=== PATIENT | female | born 1955 | race Caucasian/White ===

== ENCOUNTER 2023-08-29 13:51 | Outpatient (CLI) | payer MEDICARE, SELFPAY ==
[2023-08-29 13:44] LABS: Abs Immature Grans 0.02 10^3/uL (0.0-0.06); Absolute Basophil Count 0.02 10^3/uL (0.0-0.2); Absolute Eosinophil Count 0.14 10^3/uL (0.0-0.7); Absolute Lymphocyte Count 0.58 10^3/uL (1.2-3.4); Absolute Monocyte Count 0.53 10^3/uL (0.1-0.8); Absolute Neutrophil Count 5.74 10^3/uL (1.2-6.7); Basophils % 0.3 %; HCT 42.9 % (36.0-46.0); HGB 13.9 g/dL (11.2-15.7); Immature Grans % 0.3 %; Lymphocytes % 8.3 %; MCH 28.5 pg (27.0-33.0); MCHC 32.4 % (32.0-36.0); MCV 88 fL (80-95); MPV 10.6 fL (8.0-11.0); Monocytes % 7.5 %; Neutrophils % 81.6 %; Platelet Count 225 10^3/uL (130-400); RBC 4.88 10^6/uL (3.93-5.22); RDW 14.7 % (11.7-14.6); RDW-SD 47.5 fL; WBC 7.03 10^3/uL (4.4-10.8)
[2023-08-29 14:03] LABS: ALT 23 U/L (14-59); AST 16 U/L (15-37); Albumin 4.2 g/dL (3.4-5.0); Alkaline Phosphatase 124 U/L (46-116); Anion Gap 8.9 mmol/L (3-11); BUN 11 mg/dL (7-18); Bilirubin, Total 0.5 mg/dL (0.2-1.0); CO2 27.1 mmol/L (21.0-32.0); CREATININE 1.1 mg/dL (0.55-1.02); Calcium 9.5 mg/dL (8.5-10.1); Chloride 101 mmol/L (98-107); Estimated GFR 54.73 (mL/min/1.73m2); Glucose 99 mg/dL (74-106); Potassium 4.2 mmol/L (3.5-5.1); Sodium 137 mmol/L (136-145); Total Protein 7.4 g/dL (6.4-8.2)
[2023-08-29 14:14] LABS: LDH 206 U/L (81-234)
[2023-08-30 09:21] LABS: Hepatitis B Surface Ag Negative (Negative)
[2023-08-30 09:32] LABS: HBs Antibody, Quant <3.1 mIU/mL (See Note); Hepatitis B Surface Ab Negative (See Note)
[2023-08-30 09:52] LABS: Hepatitis C Ab w Rflx HCV PCR Negative (Negative)
[2023-08-30 10:20] LABS: HIV-1/2 Ag & Ab Screen Negative (Negative); IgA 49 mg/dL (85-499); IgG 461 mg/dL (610-1616); IgM 40 mg/dL (35-242); Kappa Free Light Chain 1.11 mg/dL (0.33-1.94); Lambda Free Light Chain 0.98 mg/dL (0.57-2.63)
[2023-08-30 10:41] LABS: Hep B Core Antibody Negative (Negative)
[2023-08-30 20:00] LABS: Beta-2-Microglobulin 3.93 mcg/mL
== END 2023-08-29 13:52 | disposition home or self-care (01) ==
LOC: LBO 13:52
PROVIDERS: Visit Provider Internal Medicine Hematology & Oncology
DX: C82.18 Follicular lymphoma grade II, lymph nodes of multiple sites (principal)
CPT/HCPCS: 36415; 80053; 82784; 86704; 86706; 86803; 87340; 87389; 82232; 83615; 83883; 84550; 85025

== ENCOUNTER 2023-08-31 15:29 | Outpatient (REF) | payer MEDICARE, SELFPAY ==
[2023-09-03 14:52] LABS: Albumin, Urine % 17.3 %; Albumin, Urine mg/24hrs 42 mg/24hrs; Globulins, Urine % 82.7 %; Globulins, Urine mg/24hrs 200 mg/24hrs; Immunotyping, Urine (See Note); Total Protein Urine 11 mg/dL (See Note); Total Protein, Urine 24hrs 242 mg/24hrs (<150); Urine Volume 2200 mL
== END 2023-08-31 15:30 | disposition home or self-care (01) ==
LOC: LBN 15:29
PROVIDERS: Visit Provider Internal Medicine Hematology & Oncology
DX: C82.18 Follicular lymphoma grade II, lymph nodes of multiple sites (principal)
CPT/HCPCS: 84156; 84166; 86335; 81050

== ENCOUNTER 2023-10-17 01:41 | Outpatient (RCR) | payer MEDICARE, SELFPAY ==
[2023-10-17] MEDS: Normal Saline Flush 10 ML SYR IVP (09:27)
[2023-10-17 09:38] LABS: Abs Immature Grans 0.02 10^3/uL (0.0-0.06); Absolute Basophil Count 0.03 10^3/uL (0.0-0.2); Absolute Eosinophil Count 0.05 10^3/uL (0.0-0.7); Absolute Lymphocyte Count 0.55 10^3/uL (1.2-3.4); Absolute Monocyte Count 0.54 10^3/uL (0.1-0.8); Absolute Neutrophil Count 4.48 10^3/uL (1.2-6.7); Basophils % 0.5 %; Eosinophils % 0.9 %; HCT 39.1 % (36.0-46.0); HGB 13.2 g/dL (11.2-15.7); Immature Grans % 0.4 %; Lymphocytes % 9.7 %; MCH 28.8 pg (27.0-33.0); MCHC 33.8 % (32.0-36.0); MCV 85 fL (80-95); MPV 10.3 fL (8.0-11.0); Monocytes % 9.5 %; Platelet Count 214 10^3/uL (130-400); RBC 4.59 10^6/uL (3.93-5.22); RDW 14.6 % (11.7-14.6); RDW-SD 44.9 fL; WBC 5.67 10^3/uL (4.4-10.8)
[2023-10-17 10:01] LABS: ALT 26 U/L (14-59); AST 17 U/L (15-37); Albumin 3.9 g/dL (3.4-5.0); Alkaline Phosphatase 125 U/L (46-116); Anion Gap 8.3 mmol/L (3-11); BUN 10 mg/dL (7-18); CO2 27.7 mmol/L (21.0-32.0); Calcium 8.8 mg/dL (8.5-10.1); Chloride 101 mmol/L (98-107); Estimated GFR 61.36 (mL/min/1.73m2); Glucose 105 mg/dL (74-106); LDH 188 U/L (81-234); Potassium 4.3 mmol/L (3.5-5.1); Sodium 137 mmol/L (136-145); Total Protein 6.8 g/dL (6.4-8.2)
== END 2023-10-17 23:59 | disposition home or self-care (01) ==
LOC: INF 01:41
PROVIDERS: Nurse Practitioner Adult Health; PCP Family Medicine; Visit Provider Internal Medicine Hematology & Oncology
DX: C82.18 Follicular lymphoma grade II, lymph nodes of multiple sites (principal); Z45.2 Encounter for adjustment and management of vascular access device
CPT/HCPCS: 36591; 80053; 83615; 85025

== ENCOUNTER 2023-11-14 02:38 | Outpatient (RCR) | payer MEDICARE, SELFPAY ==
[2023-10-24] MEDS: Normal Saline Flush 10 ML SYR IVP (08:45)
[2023-10-24 09:13] LABS: Abs Immature Grans 0.04 10^3/uL (0.0-0.06); Absolute Basophil Count 0.02 10^3/uL (0.0-0.2); Absolute Eosinophil Count 0.09 10^3/uL (0.0-0.7); Absolute Lymphocyte Count 0.16 10^3/uL (1.2-3.4); Absolute Monocyte Count 0.59 10^3/uL (0.1-0.8); Absolute Neutrophil Count 5.34 10^3/uL (1.2-6.7); Basophils % 0.3 %; Eosinophils % 1.4 %; HGB 13.6 g/dL (11.2-15.7); Immature Grans % 0.6 %; Lymphocytes % 2.6 %; MCH 28.7 pg (27.0-33.0); MCV 84 fL (80-95); MPV 10.5 fL (8.0-11.0); Monocytes % 9.5 %; Neutrophils % 85.6 %; Platelet Count 249 10^3/uL (130-400); RBC 4.74 10^6/uL (3.93-5.22); RDW 14.6 % (11.7-14.6); RDW-SD 44.4 fL; WBC 6.24 10^3/uL (4.4-10.8)
[2023-10-24 10:00] LABS: ALT 26 U/L (14-59); AST 14 U/L (15-37); Albumin 3.9 g/dL (3.4-5.0); Alkaline Phosphatase 111 U/L (46-116); Anion Gap 11.2 mmol/L (3-11); BUN 12 mg/dL (7-18); Bilirubin, Total 0.87 mg/dL (0.2-1.0); CO2 26.8 mmol/L (21.0-32.0); Calcium 9.1 mg/dL (8.5-10.1); Chloride 98 mmol/L (98-107); Estimated GFR 61.36 (mL/min/1.73m2); Glucose 105 mg/dL (74-106); LDH 194 U/L (81-234); Potassium 3.8 mmol/L (3.5-5.1); Sodium 136 mmol/L (136-145); Total Protein 6.6 g/dL (6.4-8.2)
[2023-11-14] MEDS: Normal Saline Flush 10 ML SYR IVP (08:17)
[2023-11-14 08:30] LABS: Abs Immature Grans 0.02 10^3/uL (0.0-0.06); Absolute Basophil Count 0.05 10^3/uL (0.0-0.2); Absolute Eosinophil Count 0.19 10^3/uL (0.0-0.7); Absolute Lymphocyte Count 0.38 10^3/uL (1.2-3.4); Absolute Monocyte Count 0.55 10^3/uL (0.1-0.8); Absolute Neutrophil Count 2.94 10^3/uL (1.2-6.7); Basophils % 1.2 %; Eosinophils % 4.6 %; Immature Grans % 0.5 %; Lymphocytes % 9.2 %; MCH 29.5 pg (27.0-33.0); MCHC 33.3 % (32.0-36.0); MCV 89 fL (80-95); MPV 10.2 fL (8.0-11.0); Monocytes % 13.3 %; Neutrophils % 71.2 %; Platelet Count 173 10^3/uL (130-400); RBC 4.07 10^6/uL (3.93-5.22); RDW 17.5 % (11.7-14.6); RDW-SD 55.8 fL; WBC 4.13 10^3/uL (4.4-10.8)
[2023-11-14 08:51] LABS: ALT 22 U/L (14-59); AST 14 U/L (15-37); Albumin 3.8 g/dL (3.4-5.0); Alkaline Phosphatase 163 U/L (46-116); Anion Gap 9.2 mmol/L (3-11); BUN 13 mg/dL (7-18); Bilirubin, Total 0.63 mg/dL (0.2-1.0); CO2 25.8 mmol/L (21.0-32.0); Calcium 8.9 mg/dL (8.5-10.1); Chloride 103 mmol/L (98-107); Estimated GFR 61.36 (mL/min/1.73m2); Glucose 91 mg/dL (74-106); LDH 211 U/L (81-234); Potassium 4.1 mmol/L (3.5-5.1); Sodium 138 mmol/L (136-145); Total Protein 6.5 g/dL (6.4-8.2)
== END 2023-11-17 23:59 | disposition home or self-care (01) ==
LOC: INF 02:38
PROVIDERS: Nurse Practitioner Adult Health; PCP Family Medicine; Visit Provider Internal Medicine Hematology & Oncology
DX: C82.18 Follicular lymphoma grade II, lymph nodes of multiple sites (principal)
CPT/HCPCS: 36591; 80053; 83615; 85025

== ENCOUNTER 2023-12-12 02:16 | Outpatient (RCR) | payer MEDICARE, SELFPAY ==
[2023-12-12] MEDS: Normal Saline Flush 10 ML SYR IVP (08:40)
[2023-12-12 09:02] LABS: Abs Immature Grans 0.02 10^3/uL (0.0-0.06); Absolute Basophil Count 0.03 10^3/uL (0.0-0.2); Absolute Eosinophil Count 0.14 10^3/uL (0.0-0.7); Absolute Monocyte Count 0.45 10^3/uL (0.1-0.8); Absolute Neutrophil Count 3.38 10^3/uL (1.2-6.7); Basophils % 0.7 %; Eosinophils % 3.3 %; HCT 37.3 % (36.0-46.0); HGB 12.7 g/dL (11.2-15.7); Immature Grans % 0.5 %; Lymphocytes % 4.7 %; MCH 31.3 pg (27.0-33.0); MCV 92 fL (80-95); MPV 10.3 fL (8.0-11.0); Monocytes % 10.7 %; Neutrophils % 80.1 %; Platelet Count 156 10^3/uL (130-400); RBC 4.06 10^6/uL (3.93-5.22); RDW 17.2 % (11.7-14.6); RDW-SD 58.2 fL; WBC 4.22 10^3/uL (4.4-10.8)
[2023-12-12 09:13] LABS: ALT 30 U/L (14-59); AST 21 U/L (15-37); Albumin 3.7 g/dL (3.4-5.0); Alkaline Phosphatase 162 U/L (46-116); Anion Gap 7.4 mmol/L (3-11); BUN 12 mg/dL (7-18); Bilirubin, Total 0.56 mg/dL (0.2-1.0); CO2 26.6 mmol/L (21.0-32.0); Calcium 8.9 mg/dL (8.5-10.1); Chloride 104 mmol/L (98-107); Estimated GFR 61.36 (mL/min/1.73m2); Glucose 96 mg/dL (74-106); LDH 188 U/L (81-234); Sodium 138 mmol/L (136-145); Total Protein 6.5 g/dL (6.4-8.2)
== END 2023-12-17 23:59 | disposition home or self-care (01) ==
LOC: INF 02:16
PROVIDERS: Nurse Practitioner Adult Health; PCP Family Medicine; Visit Provider Internal Medicine Hematology & Oncology
DX: C82.18 Follicular lymphoma grade II, lymph nodes of multiple sites (principal); Z45.2 Encounter for adjustment and management of vascular access device
CPT/HCPCS: 36591; 80053; 96523; 83615; 85025

== ENCOUNTER 2023-12-12 09:25 | Outpatient (CLI) | payer MEDICARE, SELFPAY ==
--- NOTE | 2023-12-12 09:37 | DI.RAD_ITS ---
Exam(s) XR CHEST 2V PA LATERAL EXAM: XR CHEST 2V PA LATERAL CLINICAL HISTORY: COUGH R05.3 LYMPHOMA C82.18 ASSESS FOR PNA, ON CHEMO TECHNIQUE: 2D digital imaging was performed of the chest. Two images were obtained. PA and lateral views were obtained. COMPARISON: No exams were available for comparison FINDINGS: MEDIASTINUM: Normal. HEART: Normal. PULMONARY VASCULATURE: Normal. LUNGS: On the lateral view, there is an opacity projected posteriorly and superiorly. It overlies th e upper thoracic spine. The lungs are otherwise clear. PLEURAL SPACE: No pleural effusion or pneumothorax. BONE:Within normal limits for the patient's age. OTHER FINDINGS:The tip of the indwelling central venous catheter is in good position at the junction of the superior vena cava and right atrium. IMPRESSION: Question of an opacity seen on the lateral view in the posterior and superior chest. Infiltrate, pul monary nodule versus versus osseous lesion. CT scan of the chest should be considered for further ev aluation. DATA REPOSITORY: RADIATION DOSE DELIVERED:
== END 2023-12-12 09:45 ==
LOC: DI 09:26
PROVIDERS: PCP Family Medicine; Visit Provider Internal Medicine Hematology & Oncology
DX: C82.18 Follicular lymphoma grade II, lymph nodes of multiple sites (principal); R05.3 Chronic cough
CPT/HCPCS: 71046

== ENCOUNTER 2024-01-09 03:14 | Outpatient (RCR) | payer MEDICARE, SELFPAY ==
[2024-01-09] MEDS: Normal Saline Flush 10 ML SYR IVP (08:14)
[2024-01-09 08:38] LABS: Abs Immature Grans 0.03 10^3/uL (0.0-0.06); Absolute Basophil Count 0.01 10^3/uL (0.0-0.2); Absolute Eosinophil Count 0.19 10^3/uL (0.0-0.7); Absolute Lymphocyte Count 0.15 10^3/uL (1.2-3.4); Absolute Monocyte Count 0.62 10^3/uL (0.1-0.8); Absolute Neutrophil Count 5.53 10^3/uL (1.2-6.7); Basophils % 0.2 %; Eosinophils % 2.9 %; HCT 36.8 % (36.0-46.0); HGB 12.8 g/dL (11.2-15.7); Immature Grans % 0.5 %; Lymphocytes % 2.3 %; MCH 31.8 pg (27.0-33.0); MCHC 34.8 % (32.0-36.0); MCV 91 fL (80-95); MPV 10.5 fL (8.0-11.0); Monocytes % 9.5 %; Neutrophils % 84.6 %; Platelet Count 177 10^3/uL (130-400); RBC 4.03 10^6/uL (3.93-5.22); RDW 14.4 % (11.7-14.6); RDW-SD 48.8 fL; WBC 6.53 10^3/uL (4.4-10.8)
[2024-01-09 08:53] LABS: ALT 29 U/L (14-59); AST 17 U/L (15-37); Albumin 3.6 g/dL (3.4-5.0); Alkaline Phosphatase 167 U/L (46-116); Anion Gap 7.6 mmol/L (3-11); BUN 10 mg/dL (7-18); Bilirubin, Total 0.57 mg/dL (0.2-1.0); CO2 27.4 mmol/L (21.0-32.0); Calcium 9.1 mg/dL (8.5-10.1); Chloride 103 mmol/L (98-107); Estimated GFR 61.36 (mL/min/1.73m2); Glucose 97 mg/dL (74-106); LDH 185 U/L (81-234); Potassium 4.2 mmol/L (3.5-5.1); Sodium 138 mmol/L (136-145); Total Protein 6.7 g/dL (6.4-8.2)
== END 2024-01-17 23:59 | disposition home or self-care (01) ==
LOC: INF 03:14
PROVIDERS: Nurse Practitioner Adult Health; PCP Family Medicine; Visit Provider Internal Medicine Hematology & Oncology
DX: C82.18 Follicular lymphoma grade II, lymph nodes of multiple sites (principal); Z45.2 Encounter for adjustment and management of vascular access device
CPT/HCPCS: 36591; 80053; 83615; 85025

== ENCOUNTER 2024-02-06 02:10 | Outpatient (RCR) | payer MEDICARE, SELFPAY ==
[2024-02-06] MEDS: Normal Saline Flush 10 ML SYR IVP (08:30)
[2024-02-06 09:10] LABS: Abs Immature Grans 0.05 10^3/uL (0.0-0.06); Absolute Basophil Count 0.02 10^3/uL (0.0-0.2); Absolute Eosinophil Count 0.19 10^3/uL (0.0-0.7); Absolute Lymphocyte Count 0.22 10^3/uL (1.2-3.4); Absolute Monocyte Count 0.81 10^3/uL (0.1-0.8); Absolute Neutrophil Count 7.79 10^3/uL (1.2-6.7); Basophils % 0.2 %; Eosinophils % 2.1 %; HGB 11.7 g/dL (11.2-15.7); Immature Grans % 0.6 %; Lymphocytes % 2.4 %; MCHC 34.4 % (32.0-36.0); MCV 90 fL (80-95); MPV 10.3 fL (8.0-11.0); Monocytes % 8.9 %; Neutrophils % 85.8 %; Platelet Count 168 10^3/uL (130-400); RBC 3.78 10^6/uL (3.93-5.22); RDW 13.7 % (11.7-14.6); RDW-SD 45.1 fL; WBC 9.08 10^3/uL (4.4-10.8)
[2024-02-06 09:27] LABS: ALT 38 U/L (14-59); AST 29 U/L (15-37); Albumin 3.3 g/dL (3.4-5.0); Alkaline Phosphatase 173 U/L (46-116); BUN 10 mg/dL (7-18); Bilirubin, Total 0.54 mg/dL (0.2-1.0); CREATININE 0.9 mg/dL (0.55-1.02); Calcium 8.8 mg/dL (8.5-10.1); Chloride 104 mmol/L (98-107); Estimated GFR 69.64 (mL/min/1.73m2); Glucose 103 mg/dL (74-106); LDH 195 U/L (81-234); Sodium 137 mmol/L (136-145); Total Protein 6.5 g/dL (6.4-8.2)
== END 2024-02-16 23:59 | disposition home or self-care (01) ==
LOC: INF 02:10
PROVIDERS: Nurse Practitioner Adult Health; PCP Family Medicine; Visit Provider Internal Medicine Hematology & Oncology
DX: C82.18 Follicular lymphoma grade II, lymph nodes of multiple sites (principal); Z45.2 Encounter for adjustment and management of vascular access device
CPT/HCPCS: 36591; 80053; 83615; 85025

== ENCOUNTER 2024-03-17 02:09 | Outpatient (RCR) | payer MEDICARE, SELFPAY ==
[2024-03-05] MEDS: Normal Saline Flush 10 ML SYR IVP (14:42)
[2024-03-05 14:45] LABS: Abs Immature Grans 0.02 10^3/uL (0.0-0.06); Absolute Basophil Count 0.02 10^3/uL (0.0-0.2); Absolute Eosinophil Count 0.12 10^3/uL (0.0-0.7); Absolute Lymphocyte Count 0.13 10^3/uL (1.2-3.4); Absolute Monocyte Count 0.54 10^3/uL (0.1-0.8); Absolute Neutrophil Count 5.37 10^3/uL (1.2-6.7); Basophils % 0.3 %; Eosinophils % 1.9 %; HCT 36.7 % (36.0-46.0); HGB 12.3 g/dL (11.2-15.7); Immature Grans % 0.3 %; Lymphocytes % 2.1 %; MCH 30.9 pg (27.0-33.0); MCHC 33.5 % (32.0-36.0); MCV 92 fL (80-95); Monocytes % 8.7 %; Neutrophils % 86.7 %; Platelet Count 152 10^3/uL (130-400); RBC 3.98 10^6/uL (3.93-5.22); RDW 14.4 % (11.7-14.6); RDW-SD 48.4 fL
[2024-03-05 15:02] LABS: ALT 28 U/L (14-59); AST 17 U/L (15-37); Albumin 3.5 g/dL (3.4-5.0); Alkaline Phosphatase 143 U/L (46-116); Anion Gap 8.9 mmol/L (3-11); BUN 10 mg/dL (7-18); Bilirubin, Total 0.53 mg/dL (0.2-1.0); CO2 27.1 mmol/L (21.0-32.0); CREATININE 1.1 mg/dL (0.55-1.02); Calcium 8.7 mg/dL (8.5-10.1); Chloride 102 mmol/L (98-107); Estimated GFR 54.73 (mL/min/1.73m2); Glucose 95 mg/dL (74-106); LDH 210 U/L (81-234); Potassium 4.1 mmol/L (3.5-5.1); Sodium 138 mmol/L (136-145); Total Protein 6.5 g/dL (6.4-8.2)
== END 2024-03-18 23:59 | disposition home or self-care (01) ==
LOC: INF 02:09
PROVIDERS: Nurse Practitioner Adult Health; PCP Family Medicine; Visit Provider Internal Medicine Hematology & Oncology
DX: C82.18 Follicular lymphoma grade II, lymph nodes of multiple sites (principal); Z45.2 Encounter for adjustment and management of vascular access device
CPT/HCPCS: 36591; 80053; 83615; 85025

== ENCOUNTER 2024-04-02 02:43 | Outpatient (RCR) | payer MEDICARE, SELFPAY ==
[2024-04-02] MEDS: Normal Saline Flush 10 ML SYR IVP (09:39)
[2024-04-02 09:50] LABS: Abs Immature Grans 0.09 10^3/uL (0.0-0.06); Absolute Eosinophil Count 0.16 10^3/uL (0.0-0.7); Absolute Lymphocyte Count 0.22 10^3/uL (1.2-3.4); Absolute Monocyte Count 1.19 10^3/uL (0.1-0.8); Absolute Neutrophil Count 12.99 10^3/uL (1.2-6.7); Basophils % 0.3 %; Eosinophils % 1.1 %; HCT 35.5 % (36.0-46.0); HGB 11.9 g/dL (11.2-15.7); Immature Grans % 0.6 %; Lymphocytes % 1.5 %; MCH 30.8 pg (27.0-33.0); MCHC 33.5 % (32.0-36.0); MCV 92 fL (80-95); MPV 9.5 fL (8.0-11.0); Monocytes % 8.1 %; Neutrophils % 88.4 %; Platelet Count 236 10^3/uL (130-400); RBC 3.86 10^6/uL (3.93-5.22); RDW 15.4 % (11.7-14.6); RDW-SD 52.1 fL
[2024-04-02 09:51] LABS: Absolute Basophil Count 0.04 10^3/uL (0.0-0.2)
[2024-04-02 10:10] LABS: ALT 30 U/L (14-59); AST 29 U/L (15-37); Albumin 3.5 g/dL (3.4-5.0); Alkaline Phosphatase 196 U/L (46-116); Anion Gap 6.9 mmol/L (3-11); BUN 10 mg/dL (7-18); Bilirubin, Total 0.77 mg/dL (0.2-1.0); CO2 28.1 mmol/L (21.0-32.0); CREATININE 1.1 mg/dL (0.55-1.02); Chloride 101 mmol/L (98-107); Estimated GFR 54.73 (mL/min/1.73m2); Glucose 110 mg/dL (74-106); LDH 213 U/L (81-234); Potassium 4.1 mmol/L (3.5-5.1); Sodium 136 mmol/L (136-145)
== END 2024-04-18 23:59 | disposition home or self-care (01) ==
LOC: INF 02:43
PROVIDERS: Nurse Practitioner Adult Health; PCP Family Medicine; Visit Provider Internal Medicine Hematology & Oncology
DX: C82.18 Follicular lymphoma grade II, lymph nodes of multiple sites (principal)
CPT/HCPCS: 36591; 80053; 82784; 83615; 85025

== ENCOUNTER 2024-04-02 13:49 | Outpatient (REF) | payer MEDICARE, SELFPAY ==
[2024-04-08 15:38] LABS: IgG 336 mg/dL (610-1616)
== END 2024-04-02 13:50 | disposition home or self-care (01) ==
LOC: LBN 13:49
PROVIDERS: PCP Family Medicine; Visit Provider Nurse Practitioner Adult Health
DX: B99.9 Unspecified infectious disease (principal)
CPT/HCPCS: 82784

== ENCOUNTER 2024-07-16 08:35 | Outpatient (RCR) | payer MEDICARE, SELFPAY ==
[2024-06-20 10:40] LABS: Abs Immature Grans 0.01 10^3/uL (0.0-0.06); Absolute Basophil Count 0.03 10^3/uL (0.0-0.2); Absolute Eosinophil Count 0.19 10^3/uL (0.0-0.7); Absolute Lymphocyte Count 0.26 10^3/uL (1.2-3.4); Absolute Neutrophil Count 4.51 10^3/uL (1.2-6.7); Basophils % 0.5 %; Eosinophils % 3.5 %; HCT 36.9 % (36.0-46.0); HGB 12.5 g/dL (11.2-15.7); Immature Grans % 0.2 %; Lymphocytes % 4.7 %; MCHC 33.9 % (32.0-36.0); MCV 92 fL (80-95); MPV 10.3 fL (8.0-11.0); Monocytes % 9.1 %; Platelet Count 176 10^3/uL (130-400); RBC 4.03 10^6/uL (3.93-5.22); RDW 14.1 % (11.7-14.6); RDW-SD 47.8 fL
[2024-06-20 10:54] LABS: ALT 27 U/L (14-59); AST 17 U/L (15-37); Albumin 3.8 g/dL (3.4-5.0); Alkaline Phosphatase 147 U/L (46-116); Anion Gap 7.6 mmol/L (3-11); BUN 11 mg/dL (7-18); Bilirubin, Total 0.5 mg/dL (0.2-1.0); CO2 28.4 mmol/L (21.0-32.0); CREATININE 1.1 mg/dL (0.55-1.02); Calcium 9.5 mg/dL (8.5-10.1); Chloride 103 mmol/L (98-107); Estimated GFR 54.73 (mL/min/1.73m2); Glucose 105 mg/dL (74-106); LDH 188 U/L (81-234); Potassium 4.2 mmol/L (3.5-5.1); Sodium 139 mmol/L (136-145); Total Protein 6.9 g/dL (6.4-8.2)
[2024-06-20] MEDS: Normal Saline Flush 10 ML SYR IVP (11:52)
[2024-06-23 10:14] LABS: IgG 589 mg/dL (610-1616)
[2024-07-16] MEDS: Normal Saline Flush 10 ML SYR IVP (08:48)
[2024-07-16 09:37] LABS: Abs Immature Grans 0.01 10^3/uL (0.0-0.06); Absolute Basophil Count 0.02 10^3/uL (0.0-0.2); Absolute Eosinophil Count 0.15 10^3/uL (0.0-0.7); Absolute Lymphocyte Count 0.27 10^3/uL (1.2-3.4); Absolute Monocyte Count 0.43 10^3/uL (0.1-0.8); Absolute Neutrophil Count 3.33 10^3/uL (1.2-6.7); Basophils % 0.5 %; Eosinophils % 3.6 %; HCT 37.7 % (36.0-46.0); Immature Grans % 0.2 %; Lymphocytes % 6.4 %; MCH 30.5 pg (27.0-33.0); MCHC 34.5 % (32.0-36.0); MCV 89 fL (80-95); MPV 10.2 fL (8.0-11.0); Monocytes % 10.2 %; Neutrophils % 79.1 %; Platelet Count 194 10^3/uL (130-400); RBC 4.26 10^6/uL (3.93-5.22); RDW 13.6 % (11.7-14.6); WBC 4.21 10^3/uL (4.4-10.8)
[2024-07-16 10:03] LABS: ALT 29 U/L (14-59); AST 18 U/L (15-37); Albumin 3.8 g/dL (3.4-5.0); Alkaline Phosphatase 148 U/L (46-116); Anion Gap 9.5 mmol/L (3-11); BUN 15 mg/dL (7-18); Bilirubin, Total 0.6 mg/dL (0.2-1.0); CO2 27.5 mmol/L (21.0-32.0); CREATININE 1.1 mg/dL (0.55-1.02); Calcium 9.3 mg/dL (8.5-10.1); Chloride 104 mmol/L (98-107); Estimated GFR 54.73 (mL/min/1.73m2); Glucose 92 mg/dL (74-106); Potassium 4.3 mmol/L (3.5-5.1); Sodium 141 mmol/L (136-145); Total Protein 7.1 g/dL (6.4-8.2)
[2024-07-16 10:26] LABS: LDH 189 U/L (81-234)
== END 2024-07-16 23:59 | disposition home or self-care (01) ==
LOC: INF 08:35
PROVIDERS: Nurse Practitioner Adult Health; PCP Family Medicine; Visit Provider Internal Medicine Hematology & Oncology
DX: Z79.899 Other long term (current) drug therapy (principal); C82.18 Follicular lymphoma grade II, lymph nodes of multiple sites; D80.1 Nonfamilial hypogammaglobulinemia; Z45.2 Encounter for adjustment and management of vascular access device
CPT/HCPCS: 36591; 80053; 82784; 83615; 85025

== ENCOUNTER 2024-08-27 08:36 | Outpatient (RCR) | payer MEDICARE, SELFPAY ==
[2024-08-27 09:02] LABS: Abs Immature Grans 0.01 10^3/uL (0.0-0.06); Absolute Basophil Count 0.02 10^3/uL (0.0-0.2); Absolute Eosinophil Count 0.13 10^3/uL (0.0-0.7); Absolute Lymphocyte Count 0.25 10^3/uL (1.2-3.4); Absolute Monocyte Count 0.41 10^3/uL (0.1-0.8); Absolute Neutrophil Count 2.91 10^3/uL (1.2-6.7); Basophils % 0.5 %; Eosinophils % 3.5 %; HCT 35.9 % (36.0-46.0); HGB 12.3 g/dL (11.2-15.7); Immature Grans % 0.3 %; Lymphocytes % 6.7 %; MCH 30.1 pg (27.0-33.0); MCHC 34.3 % (32.0-36.0); MCV 88 fL (80-95); MPV 10.4 fL (8.0-11.0); Platelet Count 178 10^3/uL (130-400); RBC 4.08 10^6/uL (3.93-5.22); RDW 13.3 % (11.7-14.6); RDW-SD 43.3 fL; WBC 3.73 10^3/uL (4.4-10.8)
[2024-08-27 09:23] LABS: ALT 29 U/L (14-59); AST 18 U/L (15-37); Albumin 3.7 g/dL (3.4-5.0); Alkaline Phosphatase 125 U/L (46-116); Anion Gap 8.1 mmol/L (3-11); BUN 10 mg/dL (7-18); Bilirubin, Total 0.5 mg/dL (0.2-1.0); CO2 27.9 mmol/L (21.0-32.0); CREATININE 0.9 mg/dL (0.55-1.02); Calcium 8.7 mg/dL (8.5-10.1); Chloride 102 mmol/L (98-107); Glucose 100 mg/dL (74-106); LDH 197 U/L (81-234); Potassium 4.3 mmol/L (3.5-5.1); Sodium 138 mmol/L (136-145); Total Protein 6.6 g/dL (6.4-8.2)
[2024-08-28 09:17] LABS: IgG 522 mg/dL (610-1616)
== END 2024-09-15 23:59 | disposition home or self-care (01) ==
LOC: INF 08:36
PROVIDERS: Nurse Practitioner Adult Health; PCP Family Medicine; Visit Provider Internal Medicine Hematology & Oncology
DX: C82.18 Follicular lymphoma grade II, lymph nodes of multiple sites (principal); Z79.899 Other long term (current) drug therapy; Z45.2 Encounter for adjustment and management of vascular access device
CPT/HCPCS: 36591; 80053; 82784; 83615; 85025

== ENCOUNTER 2024-10-08 11:12 | Outpatient (RCR) | payer MEDICARE, SELFPAY ==
[2024-10-08 12:01] LABS: Abs Immature Grans 0.02 10^3/uL (0.0-0.06); HCT 36.8 % (36.0-46.0); HGB 12.6 g/dL (11.2-15.7); Immature Grans % 0.5 %; MCH 30.2 pg (27.0-33.0); MCHC 34.2 % (32.0-36.0); MCV 88 fL (80-95); MPV 10.3 fL (8.0-11.0); Platelet Count 192 10^3/uL (130-400); RBC 4.17 10^6/uL (3.93-5.22); RDW 13.5 % (11.7-14.6); RDW-SD 43.5 fL; WBC 4.34 10^3/uL (4.4-10.8)
[2024-10-08 12:18] LABS: ALT 27 U/L (14-59); AST 19 U/L (15-37); Albumin 3.9 g/dL (3.4-5.0); Alkaline Phosphatase 141 U/L (46-116); Anion Gap 9.1 mmol/L (3-11); BUN 11 mg/dL (7-18); Bilirubin, Total 0.5 mg/dL (0.2-1.0); CO2 27.9 mmol/L (21.0-32.0); Calcium 9.2 mg/dL (8.5-10.1); Chloride 102 mmol/L (98-107); Estimated GFR 79.71 (mL/min/1.73m2); Glucose 99 mg/dL (74-106); LDH 213 U/L (81-234); Potassium 4.2 mmol/L (3.5-5.1); Sodium 139 mmol/L (136-145); Total Protein 6.9 g/dL (6.4-8.2)
[2024-10-08] MEDS: Normal Saline Flush 10 ML SYR IVP (14:20)
== END 2024-10-16 23:59 | disposition home or self-care (01) ==
LOC: INF 11:12
PROVIDERS: Nurse Practitioner Adult Health; PCP Family Medicine; Visit Provider Internal Medicine Hematology & Oncology
DX: C82.18 Follicular lymphoma grade II, lymph nodes of multiple sites (principal); Z79.899 Other long term (current) drug therapy; Z45.2 Encounter for adjustment and management of vascular access device
CPT/HCPCS: 36591; 80053; 82784; 83615; 85025

== ENCOUNTER 2024-11-19 03:00 | Outpatient (RCR) | payer MEDICARE, SELFPAY ==
[2024-11-19] MEDS: Normal Saline Flush 10 ML SYR IVP (08:40)
== END 2024-12-16 23:59 | disposition home or self-care (01) ==
LOC: INF 03:00
PROVIDERS: Nurse Practitioner Adult Health; PCP Family Medicine; Visit Provider Internal Medicine Hematology & Oncology
DX: D80.1 Nonfamilial hypogammaglobulinemia (principal); Z79.899 Other long term (current) drug therapy; Z45.2 Encounter for adjustment and management of vascular access device
CPT/HCPCS: 36591; 82784; 82565

== ENCOUNTER 2024-12-24 12:23 | Outpatient (REF) | payer MEDICARE, SELFPAY ==
[2024-12-24 12:39] LABS: Abs Immature Grans 0.01 10^3/uL (0.0-0.06); HCT 36.2 % (36.0-46.0); HGB 12.3 g/dL (11.2-15.7); Immature Grans % 0.2 %; MCH 29.8 pg (27.0-33.0); MCHC 34.0 % (32.0-36.0); MCV 88 fL (80-95); MPV 10.5 fL (8.0-11.0); Platelet Count 183 10^3/uL (130-400); RBC 4.13 10^6/uL (3.93-5.22); RDW 13.8 % (11.7-14.6); RDW-SD 44.2 fL; WBC 4.55 10^3/uL (4.4-10.8)
[2024-12-24 12:48] LABS: ALT 25 U/L (14-59); AST 15 U/L (15-37); Albumin 3.8 g/dL (3.4-5.0); Alkaline Phosphatase 128 U/L (46-116); Anion Gap 7.6 mmol/L (3-11); BUN 15 mg/dL (7-18); Bilirubin, Total 0.5 mg/dL (0.2-1.0); CO2 27.4 mmol/L (21.0-32.0); Calcium 8.3 mg/dL (8.5-10.1); Chloride 101 mmol/L (98-107); Estimated GFR 60.98 (mL/min/1.73m2); Glucose 94 mg/dL (74-106); LDH 184 U/L (81-234); Potassium 4.0 mmol/L (3.5-5.1); Sodium 136 mmol/L (136-145); Total Protein 6.6 g/dL (6.4-8.2)
== END 2024-12-24 12:24 | disposition home or self-care (01) ==
LOC: INF 12:23
PROVIDERS: PCP Family Medicine; Visit Provider Nurse Practitioner Adult Health
DX: C82.18 Follicular lymphoma grade II, lymph nodes of multiple sites (principal)
CPT/HCPCS: 80053; 82784; 83615; 85025

== ENCOUNTER 2024-12-31 08:00 | Outpatient (RCR) | payer MEDICARE, SELFPAY ==
[2024-12-24] MEDS: Normal Saline Flush 10 ML SYR IVP (11:56)
== END 2025-01-16 23:59 | disposition home or self-care (01) ==
LOC: INF 08:00
PROVIDERS: PCP Family Medicine; Visit Provider Internal Medicine Hematology & Oncology
DX: Z45.2 Encounter for adjustment and management of vascular access device (principal)
CPT/HCPCS: 36591